=== PATIENT | female | born 1990 | race Caucasian/White ===

== ENCOUNTER 2021-01-22 00:57 | Emergency (ER) | payer OTHER, SELFPAY ==
--- NOTE | ~2021-01-22 | XR_ITS ---
EXAMINATION: XR ANKLE, LEFT CLINICAL INFORMATION: Pain upon ambulation COMPARISON: None TECHNIQUE: AP, lateral, and mortise views of the left ankle. FINDINGS: No acute fracture or dislocation. Alignment is anatomic. Joint spaces are maintained. No joint effusion. Diffuse soft tissue swelling about the ankle and dorsal to the foot. XR/XR ankle LT min 3V IMPRESSION: Normal left ankle.
[2021-01-22 01:01] VITALS: BP 102/66; PULSE 93; RESP 16; TEMP 37.6; O2SAT 96; BMI 21.1
--- NOTE | 2021-01-22 01:48 | ED.LOWEXIN ---
HPI - Extremity Injury (Lower) General Chief Complaint: Extremity Injury, Lower Stated Complaint: left ankle pain, swollen Time Seen by Provider: 01/22/21 01:48 Source: patient Mode of arrival: ambulatory History of Present Illness HPI Narrative: 30-year-old female without significant past medical history who presents to the ED with left ankle swelling and pain for 3 days which started after she fell off of a 4 vuong. She states that ankle swollen and she has some difficulty with bearing weight. Related Data Allergies Allergy/AdvReac Type Severity Reaction Status Date / Time Sulfa (Sulfonamide Allergy Unknown Verified 01/22/21 01:23 Antibiotics) Review of Systems Review of Systems: Pertinent positives and negatives as stated in HPI 10 point review of systems is otherwise negative. [facility] [place] Past Medical History Source: nursing notes reviewed Social History Social History Advance Directives: No Advance Directives Information Provided: No Patient : No Physical Exam Vital Signs: Vital Signs: Last Vital Signs Temp 99.6 F 01/22/21 01:01 Pulse 93 01/22/21 01:01 Resp 16 01/22/21 01:01 BP 102/66 01/22/21 01:01 Pulse Ox 96 01/22/21 01:01 Body Mass Index 21.1 VITAL SIGNS: Reviewed. GENERAL: Well developed, well nourished, in no acute distress. HEAD: Normocephalic/atraumatic EYES: PERRLA, EOMI OROPHARYNX: no oral lesions noted, posterior pharynx clear LUNGS: Normal breath sounds. No adventitious sounds or accessory muscle use. SpO2<96> CARDIOVASCULAR: Regular rate and rhythm without noted murmurs ABDOMEN: Soft, non-tender, non-distended with bowel sounds. LEFT ANKLE: Swelling noted at the lateral malleolus with tenderness on palpation at same site, no midfoot or medial malleolus tenderness and no noted ecchymosis. Capillary refill less than 3 seconds and strong, palpable DP/PT Course Course Course Narrative: This is a 30-year-old female with history and clinical presentation most consistent with ankle sprain and review of x-rays are consistent with this identification as there is no evidence of fracture or dislocation. Patient received combination analgesics in the emergency room and on re-evaluation has had relief of her left ankle pain. Discharge Plan Discharge Clinical Impression: Left ankle sprain Patient Disposition: Home, Self-Care Instructions: Crutch Instructions (ED), Ankle Sprain (ED), R.I.C.E. Treatment (ED) Additional Instructions: 1. Recommend [id number] Tylenol/ibuprofen as needed for pain control. Apply ice to unexposed skin for 10-15 minutes, 3 to 4 times a day. 2. Continue to bear weight as tolerated and follow-up with your primary care provider in the next 1-2 days for re-evaluation. Return to the ER for any acute worsening of your symptoms. Referrals: Physician,Unknown [Primary Care Provider] - 2 days
[2021-01-22] MEDS: Ibuprofen 400 MG TABLET PO (02:05)
[2021-01-22] MEDS: Acetaminophen 325 MG TABLET 975 MG PO (02:05)
== END 2021-01-22 02:49 | disposition home or self-care (01) ==
PROVIDERS: Emergency Provider Student in an Organized Health Care Education/Training Program
DX: S93.402A Sprain of unspecified ligament of left ankle, initial encounter (principal); W05.0XXA Fall from non-moving wheelchair, initial encounter; Y93.9 Activity, unspecified; Y92.9 Unspecified place or not applicable; Y99.9 Unspecified external cause status
CPT/HCPCS: 73610; 99283